=== PATIENT | female | born 1980 | race Caucasian/White ===

== ENCOUNTER 2020-07-23 14:26 | Emergency (ER) | payer MEDICAID, OTHER ==
[~2020-07-23] VITALS: Ht 160 cm; Wt 67.3 kg
[2020-07-23 14:32] VITALS: BP 121/46
--- NOTE | 2020-07-23 14:50 | NUR ---
39 Y/O FEMALE C/O INTERMITENT RIGHT SIDE PAIN X 3 WEEKS. DENIES DYSURIA/FREQUENCY/ URINARY CHANGES. DENIES N/V/D. DENIES ANY RADIATING OF PAIN. LAST SEIZURE 3 WEEKS AGO. TOOK MOTRIN 200 MG AN HOUR AGO. MED HX: DEPRESSION, SEIZURE, GALL BLADDER REMOVAL, C SECTION
[2020-07-23 15:12] LABS: BASOPHILS # (AUTO) 0.1 K/uL (0.00-0.22); BASOPHILS % (AUTO) 0.8 % (0.0-2.0); EOSINOPHILS # (AUTO) 0.1 K/uL (0-0.4); EOSINOPHILS % (AUTO) 0.8 % (0.0-4.0); HEMATOCRIT 32.7 % (36-48); HEMOGLOBIN 10.9 g/dL (12.0-16.0); LYMPHOCYTES % (AUTO) 14.2 % (20.5-51.1); MEAN CORPUSCULAR HEMOGLOBIN 32 pg (27-31); MEAN CORPUSCULAR HGB CONC 33 g/dL (33-37); MONOCYTES # (AUTO) 0.7 K/uL (0.8-1.0); MONOCYTES % (AUTO) 9.5 % (1.7-9.3); NEUTROPHILS # (AUTO) 5.4 K/uL (1.8-7.7); NEUTROPHILS % (AUTO) 74.7 % (42.2-75.2); PLATELET COUNT (AUTO) 325 K/uL (140-450); RED BLOOD CELL COUNT(AUTO) 3.37 MIL/uL (4.20-5.40); RED CELL DISTRIBUTION WIDTH 13.9 % (11.6-13.7); WHITE BLOOD COUNT (AUTO) 7.2 K/uL (4.8-10.8)
[2020-07-23 15:30] LABS: ANION GAP 14.2 (8-16); CARBON DIOXIDE 26.2 mmol/L (21-32); CREATININE 0.8 mg/dL (0.6-1.3); POTASSIUM 3.4 mmol/L (3.5-5.1)
[2020-07-23 15:36] LABS: ALBUMIN 3.3 g/dL (3.4-5.0); TOTAL BILIRUBIN 0.3 mg/dL (0.0-1.0)
[2020-07-23] MEDS: ACETAMINOPHEN EXTRA STRENGTH 500 MG TAB PO ONE (15:41)
[2020-07-23 16:08] VITALS: BP 121/46
--- NOTE | 2020-07-23 16:08 | NUR ---
Patient discharged with v/s stable. Written and verbal after care instructions given and explained. Patient alert, oriented and verbalized understanding of instructions. Ambulatory with steady gait. All questions addressed prior to discharge. ID band removed. Patient advised to follow up with PMD. Patient educated on indication of medication including possible reaction and side effects. Opportunity to ask questions provided and answered.
[2020-07-23 16:26] LABS: APPEARANCE,URINE CLEAR (CLEAR); BILIRUBIN,URINE NEGATIVE (NEGATIVE); BLOOD, URINE 1+ (NEGATIVE); COLOR,URINE YELLOW (YELLOW); LEUKOCYTE ESTERASE ,URINE TRACE (NEGATIVE); NITRITE, URINE NEGATIVE (NEGATIVE); UGLUCOSE NEGATIVE (NEGATIVE)
[2020-07-23 16:50] LABS: WBC,URINE 0-5 /HPF (0-5)
== END 2020-07-23 16:08 | disposition home or self-care (01) ==
LOC: MED 14:26
DX: K59.00 Constipation, unspecified (principal); R10.9 Unspecified abdominal pain; F32.9 Major depressive disorder, single episode, unspecified; Z90.49 Acquired absence of other specified parts of digestive tract
CPT/HCPCS: 36415; 80053; 81001; 81025; 83690; 85025; 99284